=== PATIENT | female | born 1965 ===

== ENCOUNTER 2024-06-27 17:46 | Emergency (ER) | payer OTHER, SELFPAY ==
[2024-06-27 17:49] VITALS: BP 131/87
--- NOTE | 2024-06-27 20:24 | ED.GENMED ---
History of Present Illness
<Sierra Marx MD, Resident - Last Filed: 06/27/24 20:38>
General
Chief Complaint: Abdominal Symptoms
Time Seen by Provider: 06/27/24 19:20
History of Present Illness
History of Present Illness:
59-year-old female with past medical history of hypertension presenting to the ED with nausea vomiting and dizziness. Patient does not speak [place]. Per daughter, symptoms started at 3 AM this morning after patient wanted to go to the bathroom,
she felt the room spinning around her and became nauseous. She has had multiple episodes of bilious vomiting. Denies headache, diarrhea, abdominal pain, changes with vision, chest pain, fever, sick contacts, recent travel. Patient was assessed at
urgent care this afternoon and received Zofran 4 mg and IV fluids. [place] better but symptoms restarted after 2 to 3 hours. Patient notes her symptoms get worse with changing position. Patient currently feels more nauseous rather than dizzy.
Patient states a prior episode of dizziness about 2 years ago that was not associated with nausea and vomiting. She is on Wegovy for weight loss. Her daughter, last week dose was increased from 0.25 to 0.5. Patient denies any reactions to Wegovy.
Outside labs are normal.
Past History
<Sierra Marx MD, Resident - Last Filed: 06/27/24 20:38>
Past History
ED Past Medical History: HTN
ED Past Surgical History: Appendectomy and Cholecystectomy
Review of Systems
<Sierra Marx MD, Resident - Last Filed: 06/27/24 20:38>
Review of Systems
Constitutional: Reports no symptoms
EENT: Reports no symptoms
Respiratory: Reports no symptoms
Cardiac: Reports no symptoms
ABD/GI: Reports nausea and vomiting
: Reports no symptoms
Musculoskeletal: Reports no symptoms
Skin: Reports no symptoms
Neurological: Reports dizzy
Endocrine: Reports no symptoms
Hematologic/Lymphatic: Reports no symptoms
Psychiatric: Reports no symptoms
Phy Exam
<Sierra Marx MD, Resident - Last Filed: 06/27/24 20:38>
Physical Exam
Physical Exam:
GENERAL: Alert, in no apparent distress
EYE: pupils equal and reactive. No nistagmus. Head impulse test negative.
NECK: Supple, no significant adenopathy.
ENT: o/p clr, mmm.
CARDIAC: Regular rate and rhythm.
LUNGS: Clear breath sounds bilaterally, no acute respiratory distress, no wheezes/rales/rhonchi
ABDOMEN: Soft, without focal tenderness, no r/g, no cvat
NEUROLOGICAL: Alert and oriented, no focal neuro deficits
SKIN: Warm and dry, skin intact.
MUSCULOSKELETAL: No edema, well perfused.
PSYCH: Normal and appropriate interaction.
Course
<Sierra Marx MD, Resident - Last Filed: 06/27/24 20:38>
Orders/Labs/Results
Orders:
Orders
06/27/24 17:53
Electrocardiogram (*1) Urgent
Reason for Study: Chest Pain
06/27/24 17:54
EKG- Treatment ONCE
06/27/24 20:24
Meclizine [Antivert] 25 mg PO NOW STA
Ondansetron Orally Disint [Zofran Odt (Orally Disintegrating)] 4 mg PO NOW STA
Vital Signs
Initial and Last Documented VS:
Initial Vital Signs
Temp Pulse Resp BP Pulse Ox
97.7 F 77 18 131/87 99
06/27/24 17:49 06/27/24 17:49 06/27/24 17:49 06/27/24 17:49 06/27/24 17:49
Last Documented Vital Signs
Temp Pulse Resp BP Pulse Ox
97.7 F 63 16 150/77 94
06/27/24 17:49 06/27/24 20:41 06/27/24 20:41 06/27/24 20:41 06/27/24 20:41
<Gina Singletary DO - Last Filed: 06/27/24 23:24>
Orders/Labs/Results
Orders:
Orders
06/27/24 17:53
Electrocardiogram (*1) Urgent
Reason for Study: Chest Pain
06/27/24 17:54
EKG- Treatment ONCE
06/27/24 20:24
Meclizine [Antivert] 25 mg PO NOW STA
Ondansetron Orally Disint [Zofran Odt (Orally Disintegrating)] 4 mg PO NOW STA
Vital Signs
Initial and Last Documented VS:
Initial Vital Signs
Temp Pulse Resp BP Pulse Ox
97.7 F 77 18 131/87 99
06/27/24 17:49 06/27/24 17:49 06/27/24 17:49 06/27/24 17:49 06/27/24 17:49
Last Documented Vital Signs
Temp Pulse Resp BP Pulse Ox
97.7 F 63 16 150/77 94
06/27/24 17:49 06/27/24 20:41 06/27/24 20:41 06/27/24 20:41 06/27/24 20:41
<Sierra Marx MD, Resident - Last Filed: 06/27/24 20:38>
MDM/Problems Addressed
Differential Diagnosis Includes:
Gastroenteritis
ACS
Medication side effect
MDM/Problems Addressed:
- EKG
- Zofran 8mg oral
<Gina Singletary, DO - Last Filed: 06/27/24 23:24>
*Pulse Oximetry
Patient hypoxic: no
*EKG
Interpreted by ED Provider?: Yes
Interpretation: normal
Comparison EKG: no comparison EKG present
Rate: normal
Rhythm: sinus
[place]: normal axis
Interval: normal interval
QRS Pattern: normal QRS
Ischemia: no ischemia
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
Rate: normal
Interpretation: normal
Rhythm: sinus
*Critical Care Note
Total Time (30-74mins, 75-104mins- exclusive of procedures): Not Applicable
ED Attending Note
<Sierra Marx MD, Resident - Last Filed: 06/27/24 20:38>
-
Portions of this chart may have been created with voice recognition software.� Occasional wrong word or��sound alike� substitutions may have occurred due to the inherent limitations of voice recognition software.
<Gina Singletary DO - Last Filed: 06/27/24 23:24>
ED Attending Note
Patient seen and examined by attending physician: Yes
I performed a history and physical exam of patient and discussed management with resident, I reviewed resident's note and agree with documented findings and plan of care.: Yes
ED Attending Note:
This is a 59-year-old woman who has history of hypertension pancreatic insufficiency, obesity. She presents with somewhat abrupt onset of nausea, vomiting, dizziness that began 2:00 this morning after getting up out of bed to go to the bathroom.
Symptoms have been persistent throughout the day, worse with movement, especially worse with rotation of her head, worse with lying down. No associated headache nor abdominal pain, no chest pain or palpitations, no lightheadedness nor diaphoresis,
no fever no chills. She admits to somewhat similar episode of dizziness several years ago but not accompanied with nausea and vomiting at that time.
Evaluated at urgent care this afternoon and was feeling improved after dose of Zofran and IV fluids. Unremarkable CBC and BMP at that time. A prescription for Zofran was sent to her pharmacy but she has not had a chance to pick this up as yet.
Symptoms have returned this evening prompting ED visit.
Patient initiated Wegovy a little over a month ago and increased her dose from 0.25 mg to 0.5 mg 1 week ago. She is due for her second dose of 0.5 mg today. Thus far has had no nausea with Wegovy.
59-year-old overweight woman appears her stated age, bright and alert, pleasant, appears in no acute distress. Primary language is [place]. Daughter is interpreting.
HEENT: Mild left lateral gaze nystagmus. Test of skew is negative. Questionably positive head impulse test. Oral mucosa is moist.
Abdomen is soft without appreciable tenderness.
Concern for benign paroxysmal positional vertigo versus gastroenteritis. Other consideration is acute nausea and vomiting related to increased dose of Wegovy however less likely as she has been asymptomatic until today.
Will trial a dose of Zofran ODT as well as Antivert.
No focal neurodeficits, no headache. No indication for CT of the head nor repeat laboratory studies.
EKG shows normal sinus rhythm, normal axis, normal intervals, no evidence of ischemia.
06/27/2024 21:15 PM
Patient feeling markedly improved after Zofran and Antivert. No further nausea and dizziness has resolved. Tolerating clear liquids.
Patient is eager to be discharged to home.
Will prescribe Zofran for as needed nausea, Antivert for as needed dizziness.
Recommend clear liquid diet, slowly advance to soft foods as tolerated.
Prompt follow-up with PCP for recheck. Return precautions discussed.
Discharge Plan
Departure
Patient Disposition: Home (Routine Discharge)
Date of Disposition: 06/27/24
Time of Disposition: 21:28
Patient with high blood pressure during this ER visit?: No
Condition: Good
Discharge Problem:
acute nausea and vomiting, acute vertigo
Instructions: Vertigo (a type of dizziness), Clear Liquid Diet, Nausea and Vomiting, Adult (DC)
Prescriptions:
New
meclizine 25 mg tablet
25 mg PO QID PRN (Reason: dizziness, nausea) Qty: 20 0RF
ondansetron 4 mg tablet,disintegrating
4 mg PO QID PRN (Reason: nausea and vomiting) Qty: 20 0RF
Referrals:
Olga Vazquez PLY CUTTER [Family Provider] - Call in 1-3 days for appt
Interventions
Interventions:
*Risk Screen - Suicide Last Done: 06/27/24 17:49
*General Assessment Last Done: 06/27/24 20:40
*Neglect/Abuse Screening Last Done: 06/27/24 17:49
ED- Fall Risk Assessment Last Done: 06/27/24 20:44
*ED COVID-19 Vaccine History Last Done: 06/27/24 20:40
*Nursing Disposition Last Done: 06/27/24 21:33
EG-Jaazka-Qtfxpnosih Assessment Last Done: 06/27/24 20:44
Discharge Date and Time
Discharge Date/Time: 06/27/24 21:34
Print Language: CENTRAL AFRICAN
[2024-06-27] MEDS: ANTIVERT 25 MG PO (20:39)
[2024-06-27] MEDS: ZOFRAN ODT (ORALLY DISINTEGRATING) 4 MG PO (20:39)
[2024-06-27 20:41] VITALS: BP 150/77; BMI 39.8
== END 2024-06-27 21:34 | disposition home or self-care (01) ==
LOC: EMR 17:46
PROVIDERS: EMERGENCY PHYSICIAN Emergency Medicine; FAMILY PHYSICIAN Nurse Practitioner Adult Health
DX: R11.2 Nausea with vomiting, unspecified (principal); R42 Dizziness and giddiness; I10 Essential (primary) hypertension; E66.9 Obesity, unspecified; Z90.49 Acquired absence of other specified parts of digestive tract
CPT/HCPCS: 99283; 93005